=== PATIENT | female | born 1945 | race Caucasian/White ===

== ENCOUNTER 2019-03-05 11:11 | Inpatient (IN) ==
[2019-03-05] MEDS ORDERED: DEXAMETHASONE SOD PHOSPHATE 10 MG in SYRINGE 0 ML IV STA (12:43)
[2019-03-05] MEDS ORDERED: ACETAMINOPHEN 1,000 MG/100 ML VIAL IV STA (12:43)
[2019-03-05] MEDS ORDERED: DIAZEPAM 5 MG/ML INJ 10ML VIAL IV STA (12:43)
[2019-03-05] MEDS ORDERED: SODIUM CHLORIDE 0.9% 500 ML IV SCH (12:45)
--- NOTE | 2019-03-05 13:28 | XRay Report ---
XR chest 1V portable CLINICAL HISTORY: Chest Pain pain COMPARISON STUDY: No previous studies for comparison. FINDINGS: The bones soft tissues and hemidiaphragms are normal. The cardiomediastinal silhouette is n ormal. The lungs are clear. The pulmonary vasculature is normal. IMPRESSION: Negative chest. The above report was generated using voice recognition software. It may contain grammatical, syntax or spelling errors. Electronically signed by: Gustavo Walker M.D. 03/05/2019 1:26 PM
--- NOTE | 2019-03-05 13:29 | XRay Report ---
XR knee RT 2V routine CLINICAL HISTORY: pain, h/o arthritis pain COMPARISON: None. DISCUSSION: Severe degenerative change medial joint compartment. Moderate degenerative changes latera l and patellofemoral joint compartment. No significant joint effusion. There is no evidence for soft tissue swelling. IMPRESSION: Considerable degenerative change. The above report was generated using voice recognition software. It may contain grammatical, syntax or spelling errors. Electronically signed by: Gustavo Walker M.D. 03/05/2019 1:28 PM
--- NOTE | 2019-03-05 13:29 | XRay Report ---
XR shoulder RT min 2V routine CLINICAL HISTORY: pain, h/o arthritis pain COMPARISON: None. DISCUSSION: Moderate degenerative change right shoulder. No evidence for fracture or dislocation. Mod erate acromioclavicular degenerative change with inferior osteophyte projection from the acromion The re is no evidence for soft tissue swelling. IMPRESSION: Moderate generalized degenerative change. No acute process. The above report was generated using voice recognition software. It may contain grammatical, syntax or spelling errors. Electronically signed by: Gustavo Walker M.D. 03/05/2019 1:27 PM
[2019-03-05 13:37] LABS: Basophils # (auto) 0.02 K/uL (0-0.2); Basophils % (auto) 0.1 %; Eosinophils # (auto) 0.02 K/uL (0-0.5); Eosinophils % (auto) 0.1 %; Hematocrit (blood only) 30.6 % (37-47); Hemoglobin 10.1 g/dL (12.0-16.0); Immature Granulocytes # (auto) 0.12 K/uL (0.00-0.02); Immature Granulocytes % (auto) 0.9 %; Lymphocytes # (auto) 1.94 K/uL (1.2-3.4); Lymphocytes % (auto) 13.9 %; Mean Corpuscular Volume 92.7 fL (80-100); Mean Platelet Volume 9.4 fL (7.4-10.4); Monocytes # (auto) 1.02 K/uL (0.11-0.59); Monocytes % (auto) 7.3 %; Neutrophils # (auto) 10.88 K/uL (1.4-6.5); Neutrophils % (auto) 77.7 %; Platelet Count 287 K/uL (130-400); RDW Coefficient of Variation 13.9 % (11.5-14.5); RDW Standard Deviation 46.7 fL (36.4-46.3)
--- NOTE | 2019-03-05 13:37 | XRay Report ---
SINGLE VIEW PELVIS; 2 VIEWS RIGHT HIP CLINICAL HISTORY: Right hip and pelvic pain. FINDINGS: An AP, portable, supine view of the pelvis with AP and frog-leg portable supine views of th e right hip are obtained. No prior studies are available for comparison at the time of dictation. The examination is degraded by large body habitus. The skeletal structures are osteopenic. There is no r adiographic evidence of fracture involving the hips or bony pelvis. Mild degenerative joint space yelena rowing is seen in the hips. There is mild degenerative sclerosis of the sacroiliac joints. Lumbosacra l spondylosis is partially visualized. The overlying soft tissues are normal as imaged. IMPRESSION: No acute bony abnormality is identified. Electronically signed by: Boo Faria M.D. 03/05/2019 1:35 PM
[2019-03-05] MEDS ORDERED: DEXAMETHASONE **PF** INJ 10 MG/ML VIAL ONE (13:40)
[2019-03-05 13:55] LABS: Partial Thromboplastin Ratio 0.8; Partial Thromboplastin Time 22.3 Seconds (21.0-31.0); Prothrombin Time 10.7 Seconds (9.0-12.0)
[2019-03-05 13:59] LABS: Alanine Aminotransferase 18 U/L (12-78); Albumin Level 2.8 gm/dl (3.4-5.0); Aspartate Aminotransferase 18 U/L (15-37); BUN Creatinine Ratio 51.7 (10-20); Blood Urea Nitrogen 41 mg/dl (7-18); Carbon Dioxide 23 mmol/L (21-32); Chloride 107 mmol/L (98-107); Creatinine Clr Calc Pharmacy 94.8 ml/min; Est GFR (African American) 87.3; Est GFR (Non-African American) 75.3; Glucose 135 mg/dl (70-99); Magnesium 2.2 mg/dl (1.8-2.4); Potassium 4.3 mmol/L (3.5-5.1); Sodium 138 mmol/L (136-145)
[2019-03-05 14:04] LABS: Albumin Globulin Ratio 0.8 (0.9-2); Alkaline Phosphatase 71 U/L (45-117); Bilirubin,Total 0.3 mg/dl (0.2-1); Globulin 3.6 gm/dl (2.5-4.0); Total Protein 6.4 gm/dl (6.4-8.2); Troponin I < 0.015 ng/ml (0-0.045)
[2019-03-05] MEDS ORDERED: PANTOprazole 40 MG in SYRINGE 0 ML IV ONE (14:45)
[2019-03-05] MEDS ORDERED: MoRPHine SULFATE 10 MG/ML CARP/VIAL IV STA (15:03)
--- NOTE | 2019-03-05 15:53 | Gastrointestinal Consultation ---
Date of Consultation March 05, 2019 Assessment & Plan (1) Anemia: (2) Fecal occult blood test positive: Pt is a 73 y/o w significant degenerative changes on her shoulders, knees w c/o pain unrelieved w NSAIDs (Aleve, Ibuprofen). GI consulted as pt had notice black stools 2 days ago, but had been on Peptobismol for GI upset. She was anemic on presentation and had FOBT positive stool studies - Monitor H/H and transfuse prn - Protonix 40mg IV BID push - Ok for CL diet today, keep NPO after midnight - EGD tomorrow 03/06 - Avoid NSAIDs Supervising Physician Co-Signing Physician Notes I have performed a history and physical examination of this patient and reviewed the electronic medical record. Specifically, on physical examination patient is morbidly obese without abdominal tenderness. I have discussed the case with KARY Rosales. The above note reflects my findings, conclusions, and recommendations. Ulysses Brito MD History of Present Illness Reason for Consultation: Melena, FOBT + Requesting Physician: Dr. Markus Tsai Attending Physician: Dr. Ulysses Brito History of Present Illness Pt is a 73 y/o female who presented to ED w c/o pain on shoulders, knees. Been taking either Aleve or Ibuprofen on daily. A few days ago started have stomach upset, and indigestion symptoms. Took PeptoBismol for these symptoms and then 2 days ago noticed stools are black. She denies any n/v. Upon eval in ED, noted her H/H was low 10/30. Plt, INR normal. BUN up at 41. FOBT tested in ED positive. HR 90s-120s, BP 111/59. She has never had any endoscopic evaluations b efore. Denies any GI surgeries, hx of tubal ligation. Denies any other prescription meds at home. Denies any medical hx of cardiac disease, stroke, diabetes, HTN Allergies Allergy/AdvReac Type Severity Reaction Status Date / Time No Known Allergies Allergy Unverified 03/05/19 13:32 Home Medications Home Medications Medication Instructions Recorded Confirmed Type acetaminophen [Tylenol 8 Hour] 650 mg PO Q12H PRN 03/05/19 03/05/19 History ibuprofen 400 mg PO Q6H PRN 03/05/19 03/05/19 History magnesium salicylate-caffeine 2 tab PO Q6H PRN 03/05/19 03/05/19 History [Diurex] methyl salicylate-menthol [Bengay 1 applic TOPICAL BID PRN 03/05/19 03/05/19 H istory Greaseless] Patient History Medical History Arthritis Degenerative disc disease Family History Other Family history non-contributory Social History Preferred Language: Occitan Feels Safe at Home: Yes Smoking Status: Never smoker Review of Systems Review of Systems: All systems reviewed & are unremarkable except as noted in HPI & below Physical Exam Constitutional: + obese, well groomed and cooperative Eyes: PERRL, conjunctivae normal, anicteric sclerae ENMT: external ear and nose normal, oropharynx normal Respiratory: normal respiratory effort, lungs clear to auscultation Cardiovascular: RRR, no murmur, no edema Gastrointestinal (Abdomen): normal bowel sounds, soft, nontender, no hepatosplenomegaly Skin: no rashes, warm and dry no jaundice Neurologic: Motor/Sensory: no asterixis Psychiatric: A+Ox3, euthymic affect Lymphatic: no lymphedema Results & Data Vital Signs (Past 12 Hours) Vital Signs Temp Pulse Pulse Resp BP BP Pulse Ox 03/05/19 13:12 120 H 20 111/59 L 98 03/05/19 12:57 97 03/05/19 11:25 36.8 C 103 H 20 105/65 97 (1) Anemia Anemia type: unspecified type Qualified Code(s): D64.9 - Anemia, unspecified
[2019-03-05] MEDS ORDERED: IOVERSOL 100ml IV PRN (16:16)
--- NOTE | 2019-03-05 16:22 | CT Scan Report ---
CT abd pelvis IV con only CT DOSE: 1957.59 mGy.cm HISTORY: Melena dizziness, melena TECHNIQUE: Multiaxial CT images of the abdomen and pelvis were performed following the use of intrave nous contrast. A dose lowering technique was utilized adhering to the principles of ALARA. COMPARISON STUDY: None. FINDINGS: Lung bases are clear. Liver spleen and pancreas are unremarkable. Several small gallstones in the region of the gallbladder neck. No significant pericholecystic edema. Mild hyperplastic changes in the adrenal glands. Kidneys are considered negative for hydronephrosis. There is moderate cortical scarring of the kidneys bilaterally. Nonobstructive bowel pattern. IMPRESSION: 1. Several small gallstones. 2. Otherwise negative abdomen and pelvis. The above report was generated using voice recognition software. It may contain grammatical, syntax or spelling errors. Electronically signed by: Gustavo Walker M.D. 03/05/2019 4:21 PM
--- NOTE | 2019-03-05 17:32 | History & Physical Report ---
Date of Service March 05, 2019 Assessment & Plan (1) Upper GI bleed: This is a 73-year-old female who has a significant past medical history of morbid obesity and osteoarthritis who presents to [facility] secondary to generalized pain all over and dark stools x2 days. Likely secondary to significant NSAID use due to OADJD Pt has not been seen by PCP in 4-5 yrs Last hgb 2000 was 13.6 --> 10.1 today +FOBT admit to med/surg tele GI consulted --> EGD in a.m. Avoid NSAIDS Clear liq diet tonight; NPO after midnight PPI BID FOBT x 3 repeat h/h at 8pm and in a.m. transfuse prn hgb < 7 or symptomatic (2) Anemia: H/H 10.1 and 30.6 last hgb 13.6 in 2000 GI on board, like ABL in setting of GI loss follow H/H (3) THANH (acute kidney injury): Bun/Cr 41 and 0.79 Give 1 L IVF 80cc/hr repeat bmp in a.m. (4) Arthritis: Pt with R tricompartmental arthritis, R shoulder arthritis, R Lateral "hip," pain ? trochanteric bursitis Has never seen orthopedics - significant pain and lack of mobility due to pain an issue unable to take NSAIDS given recent significant use and now concern for UGIB will add ICE TID consult PT/OT when appropriate tramadol 50mg q4hr prn pain Schedule APAP consult orthopedics - ? if corticosteroid inj would be beneficial vs outpt follow up check ESR/CRP to r/o polymyalgia given significant arthralgias (5) Morbid obesity with BMI of 60.0-69.9, adult: encourage lifestyle modifications BMI 62 (6) DVT prophylaxis: SCDS/TEDS Disposition: discharge to home when able; pt may benefit from outpt PT/OT given arthritis along with outpt ortho follow up Follow up: Pt has not seen outpt provider since 2013, recommend setting up hospital follow up with Penny Sin PA-C or Dr. Santos Patient was seen and examined in collaboration with Dr. Tsai, please see addendum History of Present Illness Chief Complaint: Generalized pain all over; dark tarry stool x 2 days. Primary Care Provider: Clarence Mejia MD This is a 73-year-old female who has a significant past medical history of morbid obesity and osteoarthritis who presents to [facility] secondary to generalized pain all over and dark stools x2 days. Family is at bedside. Patient elicits she has a known history of severe arthritis in the right knee which causes her difficulty for ambulation. As of recently she has also had difficulty with right shoulder pain. "I cannot even raise my right arm to brush my hair because it hurts." Because of her osteoarthritis and arthralgias she has been taking significant amount of ibuprofen and aspirin. She has been taking 4 - 200mg ibuprofen every 4 hours along with occasional 4- baby ASA. She alternates with APAP. Over the past 2 days she has had 2 large bowel movements that were dark, black. She also has had nausea. Because of the nausea she took Pepto-Bismol, which she took prior to noticing dark stools. She elicited to some lightheadedness and dizziness with change in position and movement but denies any ifeoma syncope. Denies any fever, chills, sweats, chest pain, shortness of breath, palpitations, nausea, hemoptysis, hematemesis, emesis, abdominal pain, diarrhea, dysuria, hematuria, increased urgency or frequency with urination. "I am beside myself with all of my pain." She denies seeing orthopedics in the past for her arthritis. She also has not seen a general practitioner in approximately 4 years. Appetite has been good. Denies any weight change. Denies PMH of HTN, HLD, T2DM, CVA, [place], PUD, Cancer Denies hx of colonoscopy or EGD Allergies Allergy/AdvReac Type Severity Reaction Status Date / Time No Known Allergies Allergy Unverified 03/05/19 13:32 Home Medications Home Medications Medication Instructions Recorded Confirmed Type acetaminophen [Tylenol 8 Hour] 650 mg PO Q12H PRN 03/05/19 03/05/19 History ibuprofen 400 mg PO Q6H PRN 03/05/19 03/05/19 History magnesium salicylate-caffeine 2 tab PO Q6H PRN 03/05/19 03/05/19 History [Diurex] methyl salicylate-menthol [Bengay 1 applic TOPICAL BID PRN 03/05/19 03/05/19 History Greaseless] Past Med/Surg History Medical History Morbid obesity with BMI of 60.0-69.9, adult (Chronic) Arthritis (Chronic) Degenerative disc disease (Chronic) Surgical History History of tubal ligation (Chronic) Family History Mother Lung disease Coronary heart disease Father Cancer throat cancer Lung disease Other Diabetes Family history non-contributory Social History Preferred Language: Honduran Communication Ability: Effective Beliefs That Will Affect Care: None marital status: Current Living Situation: Spouse Other Information That Helps Us Care for You: No Feels Safe at Home: Yes Safety Concerns: Feels Safe At This Time Smoking Status: Never smoker Hx Alcohol Use: No Hx Substance Use: No Review of Systems Review of Systems: As noted per HPI, 10 systems reviewed and negative unless noted above. Physical Exam Physical Exam: Gen: WD/WN, morbidly obese, F, NAD, sitting up in bedside recliner, pleasant, conversing easily Head: Normocephalic, Atraumatic Eyes: Sclera normal, no conjunctival injection, PERRLA, EOMI ENT: Gross hearing intact, normal pharynx, mucous membranes moist Neck: supple, no adenopathy, No JVD, no bruit, Resp: Clear to auscultation b/l, no wheeze, rales, rhonchi. 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8 C 103 H 20 105/65 97 Laboratory Results Short CBC 03/05/19 Range/Units 13:25 WBC 14.00 H (4.8-10.8) K/uL Hgb 10.1 L (12.0-16.0) g/dL Hct 30.6 L (37-47) % Plt Count 287 (130-400) K/uL BMP 03/05/19 13:25 Sodium 138 Potassium 4.3 Chloride 107 Carbon Dioxide 23 BUN 41 H Creatinine 0.79 Glucose 135 H Calcium 9.0 Cardiac Enzymes 03/05/19 Range/Units 13:25 Troponin I < 0.015 (0-0.045) ng/ml Liver Function 03/05/19 Range/Units 13:25 Total Bilirubin 0.3 (0.2-1) mg/dl AST 18 (15-37) U/L ALT 18 (12-78) U/L Alkaline Phosphatase 71 (45-117) U/L Albumin 2.8 L (3.4-5.0) gm/dl Diagnostic Findings CT abd/Pelvis: FINDINGS: Lung bases are clear. Liver spleen and pancreas are unremarkable. Several small gallstones in the region of the gallbladder neck. No significant pericholecystic edema. Mild hyperplastic changes in the adrenal glands. Kidneys are considered negative for hydronephrosis. There is moderate cortical scarring of the kidneys bilaterally. Nonobstructive bowel pattern. IMPRESSION: 1. Several small gallstones. 2. Otherwise negative abdomen and pelvis. CXR: IMPRESSION: Negative chest. Shoulder Xray: IMPRESSION: Moderate generalized degenerative change. No acute process. Knee Xray: IMPRESSION: Considerable degenerative change. Hip Xray: IMPRESSION: No acute bony abnormality is identified. Medications Administered Ioversol (Optiray 320 100ml) 93 ml IV ONCE PRN PRN Reason: Interaction Checking Stop: 03/09/19 16:15 Last Admin: 03/05/19 16:16 Dose: 93 ml Documented by: [id number] Tramadol HCl (Ultram) 50 mg PO Q4H PRN PRN Reason: Pain Stop: 04/04/19 17:36 Last Admin: 03/05/19 18:13 Dose: 50 mg Documented by: [id number] Discontinued Medications Dexamethasone Sodium Phosphate (Decadron Pf) Confirm Administered Dose 10 mg .ROUTE .STK-MED ONE Stop: 03/05/19 13:41 Last Admin: 03/05/19 13:45 Dose: 10 mg Documented by: [id number] Diazepam (Valium) 5 mg IV NOW STA Stop: 03/05/19 12:44 Last Admin: 03/05/19 13:45 Dose: 5 mg Documented by: [id number] Dexamethasone Sodium Phosphate (10 mg/ Syringe) 2.5 mls @ 1 mls/min IV NOW STA Stop: 03/05/19 12:45 Last Admin: 03/05/19 13:45 Dose: Not Given Documented by: [id number] Sodium Chloride (Nss) 500 mls @ 999 mls/hr IV .Q31M GAURI Stop: 03/05/19 13:15 Last Infusion: 03/05/19 14:18 Dose: 0 mls/hr Documented by: [id number] Admin: 03/05/19 13:47 Dose: 999 mls/hr Documented by: [id number] Acetaminophen (Ofirmev) 1,000 mg in 100 mls @ 400 mls/hr IV NOW STA Stop: 03/05/19 12:57 Last Infusion: 03/05/19 13:59 Dose: 0 mls/hr Documented by: [id number] Admin: 03/05/19 13:44 Dose: 400 mls/hr Documented by: [id number] Pantoprazole Sodium 40 mg/ (Syringe) 10 mls @ 5 mls/min IV NOW ONE Stop: 03/05/19 14:46 Last Admin: 03/05/19 15:03 Dose: 5 mls/min Documented by: [id number] Morphine Sulfate (Morphine Sulfate) 8 mg IV NOW STA Stop: 03/05/19 15:04 Last Admin: 03/05/19 15:52 Dose: 8 mg Documented by: [id number] ECG Rate (beats per minute): 106 Rhythm: sinus tachycardia Findings: + prolonged QT (QTC 470ms) Additional Comments: possible lateral infarct age indeterminate Code Status & VTE Plan Code Status Full Code VTE Prophylaxis Plan VTE Prophylaxis will be ordered: No Reason for no VTE drug order: Contraindicated Supervising Physician Co-Signing Physician Notes Pt was seen and examined. Agreed with Vandana SAUL exam, assessment and plan. 73-year-old female with past medical history of morbid obesity and ost eoarthritis presents to [facility] for dark stools. Pt said that for the past few days she has been taking 4 asa and ibuprofen 800mg every 4 hrs for pain. She said that for the last 2 days she has been having dark stools. Hgb on admission 10.1. Received IV protonix in the ER. Continue protonix 40mg IV BID. Will monitor H/H.Gastro on board. Will keep NPO after midnight. Plan for EGD in am. Will start on tramadol for pain. Please refer to Vandana SAUL documentation for other problems. MD Eulalio (1) Anemia Anemia type: unspecified type Qualified Code(s): D64.9 - Anemia, unspecified
[2019-03-05] MEDS ORDERED: ACETAMINOPHEN 325 MG TAB PO PRN (17:37)
[2019-03-05] MEDS ORDERED: POLYETHYLENE (MIRALAX) 17 GM PACK PO PRN (17:37)
[2019-03-05] MEDS ORDERED: ONDANSETRON INJ 2 MG/ML 2 ML VIAL IV PRN (17:37)
[2019-03-05] MEDS: TRAMADOL HCL 50 MG TABLET PO PRN ×2 (18:13→22:02)
[2019-03-05] MEDS ORDERED: SODIUM CHLORIDE 0.9% 1000ML 1,000 ML IV SCH (19:00)
[2019-03-05] MEDS: ACETAMINOPHEN 325 MG TAB PO SCH (19:25)
--- NOTE | 2019-03-05 19:58 | Emergency Department Note ---
Entered by Nabeel Zepeda acting as a scribe for Mike Bella MD History of Present Illness General Chief complaint: Pain (Generalized) Stated complaint: SEVERE PAIN ON RIGHT SIDE& SHAKY Time Seen by Provider: 03/05/19 12:06 Source: patient History of Present Illness Onset (ago): week(s) 5 Location: right (shoulder, hip/leg) Pain Consistency: + constant Maximum Pain Intensity: 10 Relieved By: + medication (several over the counter medications) Associated symptoms: + other (black stool in past couple days, dizzy and nauseous today) The patient is a 73 year old female who presents to the Emergency Room with complaints of constant pain in the right shoulder and right hip/leg. The patient reports that 5 weeks ago she developed the right shoulder pain, causing her difficulty in raising her right arm. About a week ago she also developed worse maykel pain in her right hip/leg, which prompted her to schedule an appointment with her PCP for later today. She states that in the past couple of days her stools have been black, and today she developed dizziness and nausea. She called her PCP before her appointment and was told to come to the ER. The patient reports that over the past 5 weeks she has been taking several tuca-tdu-ozawldo medications for symptom management, including ibuprofen, Tylenol, aspirin, and Pepto-Bismol. She states that she has not taken any of these over the past 24 hours. The patient reports that she has a long history of arthritis primarily in the knees, worse in the right. She also states that several years ago she was diagnosed with degenerative disc disease. Daughters at bedside note that her feet have been somewhat swollen but state that she does not elevate her legs due to her knee arthritis. Home Medications Home Medications Medication Instructions Recorded Confirmed Type acetaminophen [Tylenol 8 Hour] 650 mg PO Q12H PRN 03/05/19 03/05/19 History ibuprofen 400 mg PO Q6H PRN 03/05/19 03/05/19 History magnesium salicylate-caffeine 2 tab PO Q6H PRN 03/05/19 03/05/19 History [Diurex] methyl salicylate-menthol [Bengay 1 applic TOPICAL BID PRN 03/05/19 03/05/19 History Greaseless] Allergies Allergy/AdvReac Type Severity Reaction Status Date / Time No Known Allergies Allergy Unverified 03/05/19 13:32 Past Med/Surg History Medical History Morbid obesity with BMI of 60.0-69.9, adult (Chronic) Arthritis (Chronic) Degenerative disc disease (Chronic) Surgical History History of tubal ligation (Chronic) Family History Mother Lung disease Coronary heart disease Father Cancer throat cancer Lung disease Other Diabetes Family history non-contributory Social History Preferred Language: Icelandic Communication Ability: Effective Beliefs That Will Affect Care: None marital status: Current Living Situation: Spouse Other Information That Helps Us Care for You: No Feels Safe at Home: Yes Safety Concerns: Feels Safe At This Time Smoking Status: Never smoker Hx Alcohol Use: No Hx Substance Use: No Review of Systems See HPI for pertinent positives & negatives. and A total of 10 systems reviewed and were otherwise negative Physical Exam Vital Signs Vital Signs - 24 hr 03/05/19 11:25 03/05/19 12:57 03/05/19 13:12 Temperature 36.8 C Temperature Source Oral Sepsis Recent Fever Within 48 Hours No Sepsis New/Unexplained Change in Mental Status No Sepsis Action Taken by Nursing No Action Required Pulse Rate 103 H Pulse Rate [Apical] 120 H Pulse Rate from SpO2 Sensor Pulse Rhythm [Apical] Regular Pulse Strength [Apical] Normal Respiratory Rate 20 20 Respiratory Effort / Characteristics Non-Labored Non-Labored Spontaneous Respiratory Depth Normal Normal Respiratory Pattern Regular Blood Pressure 105/65 Blood Pressure [Left Arm] 111/59 L Blood Pressure Mean 78 Blood Pressure Mean [Left Arm] 76 Blood Pressure Position Sitting Blood Pressure Position [Left Arm] Sitting Pulse Oximetry 97 97 98 Oxygen Delivery Method Room Air Room Air Room Air 03/05/19 13:55 03/05/19 13:59 03/05/19 14:00 Temperature Temperature Source Sepsis Recent Fever Within 48 Hours Sepsis New/Unexplained Change in Mental Status Sepsis Action Taken by Nursing Pulse Rate 97 H 98 H 98 H Pulse Rate [Apical] Pulse Rate from SpO2 Sensor 97 H 98 H 99 H Pulse Rhythm [Apical] Pulse Strength [Apical] Respiratory Rate 17 16 17 Respiratory Effort / Characteristics Respiratory Depth Respiratory Pattern Blood Pressure 111/59 L Blood Pressure [Left Arm] Blood Pressure Mean 76 Blood Pressure Mean [Left Arm] Blood Pressure Position Blood Pressure Position [Left Arm] Pulse Oximetry 95 95 96 Oxygen Delivery Method 03/05/19 14:01 03/05/19 15:00 Temperature Temperature Source Sepsis Recent Fever Within 48 Hours Sepsis New/Unexplained Change in Mental Status Sepsis Action Taken by Nursing Pulse Rate 99 H 92 H Pulse Rate [Apical] Pulse Rate from SpO2 Sensor 99 H 92 H Pulse Rhythm [Apical] Pulse Strength [Apical] Respiratory Rate 21 19 Respiratory Effort / Characteristics Respiratory Depth Respiratory Pattern Blood Pressure 96/58 L 102/60 Blood Pressure [Left Arm] Blood Pressure Mean 70 74 Blood Pressure Mean [Left Arm] Blood Pressure Position Blood Pressure Position [Left Arm] Pulse Oximetry 95 95 Oxygen Delivery Method GENERAL: Awake, alert, uncomfortab le-appearing, in no distress. BMI is 62.4. HENT: Normocephalic, atraumatic. Oropharynx unremarkable. EYES: Normal conjunctiva. Sclera non-icteric. NECK: Supple. No nuchal rigidity. FROM. No JVD. RESPIRATORY: Clear to auscultation bilaterally. CARDIAC: Regular rate, normal rhythm. Extremities warm and well perfused. Pulses equal. ABDOMEN: Soft, non-distended. No tenderness to palpation. No rebound or gu arding. No masses. RECTAL: Positive melena, no gross blood, Guaiac positive. MUSCULOSKELETAL: Tenderness to right shoulder AC joint with pain with active ROM of the right shoulder that is cecreased pain with passive ROM. Chest examination reveals no tenderness. The back is symmetrical on inspection without obvious abnormality. There is no CVA tenderness to palpation. No joint edema. LOWER EXTREMITIES: Pain with active ROM of the right knee. Calves are equal size bilaterally and non-tender. 1+ BLE edema. No discoloration. NEURO: Normal sensorium. No sensory or motor deficits noted. SKIN: No rash or jaundice noted. Course 1230: The patient was evaluated in room B7. A complete history and physical examination were performed. 1437: I consulted Vandana Zamora PA-C: [facility] Hospitalist. The patient will be reevaluated for hospitalization. Administered Medications Acetaminophen (Tylenol) 650 mg PO Q6 GAURI Stop: 04/04/19 19:59 Last Admin: 03/05/19 19:25 Dose: 650 mg Documented by: [id number] Pantoprazole Sodium 40 mg/ (Syringe) 10 mls @ 5 mls/min IV BID@0900,2100 [facility] Stop: 04/04/19 20:59 Last Admin: 03/05/19 21:32 Dose: 5 mls/min Documented by: [id number] Sodium Chloride (Nss 1000ml) 1,000 mls @ 80 mls/hr IV .[id number] GAURI Stop: 03/06/19 07:29 Last Admin: 03/05/19 19:22 Dose: 80 mls/hr Documented by: [id number] Ioversol (Optiray 320 100ml) 93 ml IV ONCE PRN PRN Reason: Interaction Checking Stop: 03/09/19 16:15 Last Admin: 03/05/19 16:16 Dose: 93 ml Documented by: [id number] Tramadol HCl (Ultram) 50 mg PO Q4H PRN PRN Reason: Pain Stop: 04/04/19 17:36 Last Admin: 03/05/19 22:02 Dose: 50 mg Documented by: [id number] Admin: 03/05/19 18:13 Dose: 50 mg Documented by: [id number] Discontinued Medications Dexamethasone Sodium Phosphate (Decadron Pf) Confirm Administered Dose 10 mg .ROUTE .STK-MED ONE Stop: 03/05/19 13:41 Last Admin: 03/05/19 13:45 Dose: 10 mg Documented by: [id number] Diazepam (Valium) 5 mg IV NOW STA Stop: 03/05/19 12:44 Last Admin: 03/05/19 13:45 Dose: 5 mg Documented by: [id number] Dexamethasone Sodium Phosphate (10 mg/ Syringe) 2.5 mls @ 1 mls/min IV NOW STA Stop: 03/05/19 12:45 Last Admin: 03/05/19 13:45 Dose: Not Given Documented by: [id number] Sodium Chloride (Nss) 500 mls @ 999 mls/hr IV .Q31M GAURI Stop: 03/05/19 13:15 Last Infusion: 03/05/19 14:18 Dose: 0 mls/hr Documented by: [id number] Admin: 03/05/19 13:47 Dose: 999 mls/hr Documented by: [id number] Acetaminophen (Ofirmev) 1,000 mg in 100 mls @ 400 mls/hr IV NOW STA Stop: 03/05/19 12:57 Last Infusion: 03/05/19 13:59 Dose: 0 mls/hr Documented by: [id number] Admin: 03/05/19 13:44 Dose: 400 mls/hr Documented by: [id number] Pantoprazole Sodium 40 mg/ (Syringe) 10 mls @ 5 mls/min IV NOW ONE Stop: 03/05/19 14:46 Last Admin: 03/05/19 15:03 Dose: 5 mls/min Documented by: [id number] Morphine Sulfate (Morphine Sulfate) 8 mg IV NOW STA Stop: 03/05/19 15:04 Last Admin: 03/05/19 15:52 Dose: 8 mg Documented by: [id number] Medical Decision Making Differential Diagnosis Differential diagnosis includes: diverticulosis, AVM, coagulopathy, colitis, inflammatory bowel disease, malignancy, Jazmine-Mackenzie tear, esophagitis, peptic ulcer disease, variceal bleed, gastritis, epistaxis, fissure, hemorrhoids, aswell as others were entertained. Medical Records Attestation: I reviewed the patient's medical records. Home Medications Current Medication List: was personally reviewed by me Laboratory Data Attestation: I reviewed the patient's lab results. Result diagrams: 03/05/19 19:45 03/05/19 13:25 Lab Results 03/05/19 03/05/19 03/05/19 Range/Units 13:25 13:25 13:25 WBC 14.00 H (4.8-10.8) K/uL RBC 3.30 L (4.2-5.4) M/uL Hgb 10.1 L (12.0-16.0) g/dL Hct 30.6 L (37-47) % MCV 92.7 (80-100) fL MCH 30.6 (25-34) pg MCHC 33.0 (32-36) g/dL RDW Std Deviation 46.7 H (36.4-46.3) fL RDW Coeff of Octavio 13.9 (11.5-14.5) % Plt Count 287 (130-400) K/uL MPV 9.4 (7.4-10.4) fL Immature Gran % (Auto) 0.9 % Neut % (Auto) 77.7 % Lymph % (Auto) 13.9 % Fisher % (Auto) 7.3 % Eos % (Auto) 0.1 % Baso % (Auto) 0.1 % Immature Gran # (Auto) 0.12 H (0.00-0.02) K/uL Neut # (Auto) 10.88 H (1.4-6.5) K/uL Lymph # (Auto) 1.94 (1.2-3.4) K/uL Fisher # (Auto) 1.02 H (0.11-0.59) K/uL Eos # (Auto) 0.02 (0-0.5) K/uL Baso # (Auto) 0.02 (0-0.2) K/uL PT 10.7 (9.0-12.0) Seconds INR 1.0 (0.9-1.1) APTT 22.3 (21.0-31.0) Seconds PTT Ratio 0.8 Sodium 138 (136-145) mmol/L Potassium 4.3 (3.5-5.1) mmol/L Chloride 107 (98-107) mmol/L Carbon Dioxide 23 (21-32) mmol/L Anion Gap 8.0 (3-11) BUN 41 H (7-18) mg/dl Creatinine 0.79 (0.6-1.2) mg/dl Est Cr Clr Drug Dosing 94.8 ml/min Est GFR ( Amer) 87.3 Est GFR (Non-Af Amer) 75.3 BUN/Creatinine Ratio 51.7 H (10-20) Glucose 135 H (70-99) mg/dl Calcium 9.0 (8.5-10.1) mg/dl Magnesium 2.2 (1.8-2.4) mg/dl Total Bilirubin 0.3 (0.2-1) mg/dl AST 18 (15-37) U/L ALT 18 (12-78) U/L Alkaline Phosphatase 71 (45-117) U/L Troponin I < 0.015 (0-0.045) ng/ml Total Protein 6.4 (6.4-8.2) gm/dl Albumin 2.8 L (3.4-5.0) gm/dl Globulin 3.6 (2.5-4.0) gm/dl Albumin/Globulin Ratio 0.8 L (0.9-2) Lipase 118 (73-393) U/L Blood Type Antibody Screen 03/05/19 Range/Units 14:48 WBC (4.8-10.8) K/uL RBC (4.2-5.4) M/uL Hgb (12.0-16.0) g/dL Hct (37-47) % MCV (80-100) fL MCH (25-34) pg MCHC (32-36) g/dL RDW Std Deviation (36.4-46.3) fL RDW Coeff of Octavio (11.5-14.5) % Plt Count (130-400) K/uL MPV (7.4-10.4) fL Immature Gran % (Auto) % Neut % (Auto) % Lymph % (Auto) % Fisher % (Auto) % Eos % (Auto) % Baso % (Auto) % Immature Gran # (Auto) (0.00-0.02) K/uL Neut # (Auto) (1.4-6.5) K/uL Lymph # (Auto) (1.2-3.4) K/uL Fisher # (Auto) (0.11-0.59) K/uL Eos # (Auto) (0-0.5) K/uL Baso # (Auto) (0-0.2) K/uL PT (9.0-12.0) Seconds INR (0.9-1.1) APTT (21.0-31.0) Seconds PTT Ratio Sodium (136-145) mmol/L Potassium (3.5-5.1) mmol/L Chloride (98-107) mmol/L Carbon Dioxide (21-32) mmol/L Anion Gap (3-11) BUN (7-18) mg/dl Creatinine (0.6-1.2) mg/dl Est Cr Clr Drug Dosing ml/min Est GFR ( Amer) Est GFR (Non-Af Amer) BUN/Creatinine Ratio (10-20) Glucose (70-99) mg/dl Calcium (8.5-10.1) mg/dl Magnesium (1.8-2.4) mg/dl Total Bilirubin (0.2-1) mg/dl AST (15-37) U/L ALT (12-78) U/L Alkaline Phosphatase (45-117) U/L Troponin I (0-0.045) ng/ml Total Protein (6.4-8.2) gm/dl Albumin (3.4-5.0) gm/dl Globulin (2.5-4.0) gm/dl Albumin/Globulin Ratio (0.9-2) Lipase (73-393) U/L Blood Type O Positive Antibody Screen NEGATIVE Imaging Data Radiologist's Impression: Radiology results as stated below per my review and the radiologist's interpretation: XR chest 1V portable CLINICAL HISTORY: Chest Pain pain COMPARISON STUDY: No previous studies for comparison. FINDINGS: The bones soft tissues and hemidiaphragms are normal. The cardiomedia stinal silhouette is normal. The lungs are clear. The pulmonary vasculature is normal. IMPRESSION: Negative chest. The above report was generated using voice recognition software. It may contain grammatical, syntax or spelling errors. Electronically signed by: Gustavo Walker M.D. 03/05/2019 1:26 PM SINGLE VIEW PELVIS; 2 VIEWS RIGHT HIP CLINICAL HISTORY: Right hip and pelvic pain. FINDINGS: An AP, portable, supine view of the pelvis with AP and frog-leg portable supine views of the right hip are obtained. No prior studies are available for comparison at the time of dictation. The examination is degraded by large body habitus. The skeletal structures are osteopenic. There is no radiographic evidence of fracture involving the hips or bony pelvis. Mild degenerative joint space narrowing is seen in the hips. There is mild degenerative sclerosis of the sacroiliac joints. Lumbosacral spondylosis is partially visualized. The overlying soft tissues are normal as imaged. IMPRESSION: No acute bony abnormality is identified. Electronically signed by: Boo Faria M.D. 03/05/2019 1:35 PM XR knee RT 2V routine CLINICAL HISTORY: pain, h/o arthritis pain COMPARISON: None. DISCUSSION: Severe degenerative change medial joint compartment. Moderate degenerative changes lateral and patellofemoral joint compartment. No significant joint effusion. There is no evidence for soft tissue swelling. IMPRESSION: Considerable degenerative change. The above report was generated using voice recognition software. It may contain grammatical, syntax or spelling errors. Electronically signed by: Gustavo Walker M.D. 03/05/2019 1:28 PM XR shoulder RT min 2V routine CLINICAL HISTORY: pain, h/o arthritis pain COMPARISON: None. DISCUSSION: Moderate degenerative change right shoulder. No evidence for fracture or dislocation. Moderate acromioclavicular degenerative change with inferior osteophyte projection from the acromion There is no evidence for soft tissue swelling. IMPRESSION: Moderate generalized degenerative change. No acute process. The above report was generated using voice recognition software. It may contain grammatical, syntax or spelling errors. Electronically signed by: Gustavo Walker M.D. 03/05/2019 1:27 PM ECG Data Attestation: I personally reviewed and interpreted this ECG as follows: Indication: other (GI bleed) Rate (beats per minute): 106 Rhythm: sinus tachycardia Findings: + other (LVH); no ST depression (overt) and no ST elevation (overt) Blood Pressure Blood Pressure Findings: Normal blood pressure Blood Pressure Disposition: did not require urgent referral MDM Narrative The patient is a pleasant 73-year-old woman with a past medical history of morbid obesity who presents emergency department with worsening right shoulder, right hip and right knee pain over the past month which she has been self treating with recurrent doses of ibuprofen and aspirin as well as Tylenol with no relief but subsequent development of black stools over the past several days with associated lightheadedness and generalized weakness per hpi. On arrival the patient is uncomfortable but no acute distress, afebrile with stable vital signs. The patient has pain with range of motion of her right shoulder hip and knee. Right shoulder with tenderness of the AC joint with decreased pain with passive range of motion compared to active range of motion. Rectal exam demonstrates melena without gross blood but is guaiac positive. Abdomen is benign. EKG without overt acute ischemia. Chest x-ray negative for free air or pneumonia. Plain films of the shoulder, hip/pelvis and knee negative for acute process but does demonstrate osteoarthritis. WBC 14, nonspecific. Platelets w ithin normal limits. H/H 10/30 without prior values for comparison as patient has not had lab work done in the past 3 years. Chemistry without acidosis and creatinine within normal limits. However, BUN is elevated at 41 raising the suspicion for upper GI bleed given the patient's anemia and melena. Patient was ordered for IV Protonix. Given the patient is hemodynamically stable patient was ordered for a type and screen however transfusion deferred at this time. CT abdomen pelvis shows gallstones but otherwise no acute process. Case was discussed with Taz Valdes PA-C, who will evaluate the patient for admission. Impression & Plan Upper GI bleed, Anemia, Elevated BUN Discharge Plan Visit Data *Final* Discharge Date/Time: 03/05/19 16:10 Chief Complaint: Pain (Generalized) Stated Complaint: SEVERE PAIN ON RIGHT SIDE& SHAKY ED Provider: Mike Bella Discharge Problem: Upper GI bleed, Anemia, Elevated BUN Patient Disposition: Admitted As Inpatient Discharge Instructions Interventions: ED Discharge Assessment Last Done: 03/05/19 16:10 Discharge Problem: Anemia Qualifiers: Anemia type: unspecified type Qualified Code(s): D64.9 - Anemia, unspecified The scribe's documentation has been prepared under my direction and personally reviewed by me in its entirety. I confirm that the note above accurately reflects all work, treatment, procedures, and medical decision making performed by me.
[2019-03-05 19:59] LABS: Hematocrit (blood only) 29.8 % (37-47); Hemoglobin 9.7 g/dL (12.0-16.0)
[2019-03-05] MEDS: PANTOprazole 40 MG in SYRINGE 0 ML IV SCH (21:32)
[2019-03-05] MEDS ORDERED: MICONAZOLE NITRATE POWDER 43 GM EXT PRN (23:29)
[2019-03-06 03:23] LABS: Appearance Urine Clear (Clear); Bilirubin Urine Negative (Negative); Blood Urine Negative (Negative); Color Urine Yellow; Glucose Urine UA Negative (Negative); Ketones Urine Negative (Negative); Leukocyte Esterase Urine Negative (Negative); Nitrite Urine Negative (Negative); Protein Urine Negative (Negative); Specific Gravity Urine 1.026 (1.000-1.030); Urobilinogen Urine Negative (Negative)
[2019-03-06] MEDS: TRAMADOL HCL 50 MG TABLET PO PRN ×3 (04:57→21:45)
[2019-03-06] MEDS: ACETAMINOPHEN 325 MG TAB PO SCH (06:17)
[2019-03-06 06:29] LABS: Basophils # (auto) 0.01 K/uL (0-0.2); Basophils % (auto) 0.1 %; Hematocrit (blood only) 27.2 % (37-47); Hemoglobin 8.8 g/dL (12.0-16.0); Immature Granulocytes % (auto) 0.7 %; Lymphocytes # (auto) 1.41 K/uL (1.2-3.4); Lymphocytes % (auto) 9.2 %; Mean Corpuscular Hgb Conc 32.4 g/dL (32-36); Mean Corpuscular Volume 95.1 fL (80-100); Mean Platelet Volume 9.1 fL (7.4-10.4); Monocytes # (auto) 1.05 K/uL (0.11-0.59); Monocytes % (auto) 6.8 %; Neutrophils # (auto) 12.79 K/uL (1.4-6.5); Neutrophils % (auto) 83.2 %; Nucleated RBC # (auto) 0.07 K/uL (0-0); Nucleated RBC % (auto) 0.4 %; Platelet Count 272 K/uL (130-400); RDW Coefficient of Variation 14.2 % (11.5-14.5); RDW Standard Deviation 48.5 fL (36.4-46.3); Red Blood Count 2.86 M/uL (4.2-5.4); White Blood Count 15.36 K/uL (4.8-10.8)
[2019-03-06 07:01] LABS: BUN Creatinine Ratio 40.1 (10-20); Calcium 8.6 mg/dl (8.5-10.1); Creatinine Clr Calc Pharmacy 108.5 ml/min; Est GFR (African American) 101.5; Est GFR (Non-African American) 87.6; Potassium 4.2 mmol/L (3.5-5.1)
[2019-03-06 07:10] LABS: C Reactive Protein 0.55 mg/dl (0-0.29)
[2019-03-06] MEDS: PANTOprazole 40 MG in SYRINGE 0 ML IV SCH ×2 (08:47→20:37)
--- NOTE | 2019-03-06 09:43 | Hospitalist Progress Note ---
Date of Service March 06, 2019 Assessment & Plan (1) Upper GI bleed: This is a 73-year-old female who has a significant past medical history of morbid obesity and osteoarthritis who presents to [facility] secondary to generalized pain all over and dark stools x2 days. Likely secondary to significant NSAID use due to OADJD Pt has not been seen by PCP in 4-5 yrs Last hgb 2000 was 13.6 --> 10.1 yesterday, 8.8 today +FOBT GI consulted --> EGD today. Avoid NSAIDS PPI BID transfuse prn hgb < 7 or symptomatic (2) Anemia: UGIB, Acute GI Blood Loss Anemia (3) THANH (acute kidney injury): Resolved (4) Arthritis: Pt with R tricompartmental arthritis, R shoulder arthritis, R Lateral "hip," pain ? trochanteric bursitis Has never seen orthopedics - significant pain and lack of mobility due to pain an issue unable to take NSAIDS given recent significant use and now concern for UGIB will add ICE TID PT/OT soon tramadol 50mg q4hr prn pain Schedule Tylenol consult orthopedics - ? if corticosteroid inj would be beneficial vs outpt follow up check ESR/CRP to r/o polymyalgia given significant arthralgias (5) Morbid obesity with BMI of 60.0-69.9, adult: encourage lifestyle modifications BMI 62 (6) DVT prophylaxis: SCDS/TEDS Disposition: discharge to home when able; pt may benefit from outpt PT/OT given arthritis along with outpt ortho follow up Follow up: Pt has not seen outpt provider since 2013, recommend setting up hospital follow up with Penny Sin PA-C or Dr. Tom VICTORIA when Hb rising and edvin diet, monitor daily labs ROS-No Headache, No Visual Changes, No Nausea, No Vomiting, No Fever, No Chills, No Neck Pain or Stiffness, No Chest Pain, No Palpitations, No SOB, No BARRETT, No Cough, No Sputum, No Wheezing, No Abdominal Pain, No Diarrhea, No Hematemesis, No Hemoptysis, No Unexpected Weight Loss, No Flank pain, No Melena, No Hematochezia, No Frequency, No Urgency, No Burning, No Hematuria, No Rashes, No Diaphoresis. Appetite is Normal, Black stools Physical Exam Gen-AAO x 3, NAD, Afebrile, Obese Head-NCAT, EOMI, PERRLA, Anicteric Sclera, No Posterior Pharyngeal Erythema Neck-Supple, No JVD, No Thyromegaly, No Masses, No LAD, No Bruits Lungs-Clear to Auscultation Bilaterally, No Rales, No Rhonchi, No Wheezing, No Crepitus Chest-No S4, +S1, +S2, No S3, No Murmurs, No Rubs, No Gallops, No Ectopy Abdomen-Soft, Bowel Sounds Present, Non Tender, Non Distended, No Hepatomegaly, No Splenomegaly, No Palpable Masses, No Rebound, No Rigidity, No Guarding Musculoskeletal-Full Range of Motion Bilaterally, No CVAT Extremities-No Cyanosis, No Clubbing, No Edema Nuero-Cranial Nerves II-XII grossly intact, Motor WNL, DTRs WNL, Strength WNL, Non Focal Psych-Normal Mood Results & Data Vital Signs (Past 12 Hours) Vital Signs Temp Pulse Pulse Pulse Resp BP Pulse Ox 03/06/19 08:00 91 H 03/06/19 07:01 36.4 C L 87 16 150/74 H 96 03/06/19 03:21 90 03/05/19 23:36 36.8 C 93 H 20 154/79 H 96 (1) Anemia Anemia type: unspecified type Qualified Code(s): D64.9 - Anemia, unspecified
--- NOTE | 2019-03-06 09:49 | History & Physical Bridge Note ---
Date of Service March 06, 2019 History & Physical Bridge Note I have examined the patient, reviewed the History & Physical and in the interval since the performance of the History & Physical I have noted the following changes of clinical significance: no changes noted Pt still c/o generalized joint discomfort. Denies any abd pain, n/v. Hungry, no more BMs. Noted Hgb dropped to 8.8 from 10. She's NPO for scheduled EGD today. Exam: - AAOx3, in NAD - HRR no murmur or gallops - CTA bilateral lungs - Abd soft, non tender, hypoactive - No edema on bilateral LE GI will give further recs after EGD is completed. Please continue NPO status and PPI IV BID for now.
--- NOTE | 2019-03-06 10:30 | Anesthesiology Consultation ---
Date of Service March 06, 2019 Assessment & Plan (1) Encounter for pre-operative examination: Chart Review Chart Review: Acceptable Risk for Surgery and Patient NOT seen in Pre Admission Testing Consults Requested none History Surgery Operation Date: 03/06/19 08:45 Proposed Procedures p Esophagogastroduodenoscopy Dr Louie - Ulysses Brito MD Height/Weight Height: 5 ft 2 in Weight: 154.675 kg Allergies Allergy/AdvReac Type Severity Reaction Status Date / Time No Known Allergies Allergy Unverified 03/05/19 13:32 Medications Home Medications Medication Instructions Recorded Confirmed Last Taken acetaminophen [Tylenol 8 Hour] 650 mg PO Q12H PRN 03/05/19 03/05/19 03/04/19 ibuprofen 400 mg PO Q6H PRN 03/05/19 03/05/19 03/04/19 magnesium salicylate-caffeine 2 tab PO Q6H PRN 03/05/19 03/05/19 Unknown [Diurex] methyl salicylate-menthol [Bengay 1 applic TOPICAL BID PRN 03/05/19 03/05/19 Unknown Greaseless] Active Medications Generic Name Dose Route Start Last Admin Trade Name Freq PRN Reason Stop Dose Admin Pantoprazole Sodium 40 mg/ 10 mls @ 5 mls/min 03/05/19 21:00 03/06/19 08:47 Syringe IV 04/04/19 20:59 5 mls/min BID@0900,2100 GAURI Administration Ioversol 93 ml 03/05/19 16:16 03/05/19 16:16 Optiray 320 100ml IV 03/09/19 16:15 93 ml ONCE PRN Administration Interaction Checking Tramadol HCl 50 mg 03/05/19 17:37 03/06/19 08:55 Ultram PO 04/04/19 17:36 50 mg Q4H PRN Administration Pain NPO Date Last Intake of Fluids: 03/05/19 Date Last Intake of Solids: 03/05/19 Past Medical History Medical History Morbid obesity with BMI of 60.0-69.9, adult (Chronic) Arthritis (Chronic) Degenerative disc disease (Chronic) Past Family History Family History Mother Lung disease Coronary heart disease Father Cancer throat cancer Lung disease Other Diabetes Family history non-contributory Past Surgical History Surgical History History of tubal ligation (Chronic) Social History Smoking Status: Never smoker Hx Alcohol Use: No alcohol intake frequency: holidays/special occasions only Hx Substance Use: No Physical Exam Vital Signs Last Vital Signs Temp 36.4 C L 03/06/19 07:01 Pulse 91 H 03/06/19 08:00 Resp 16 03/06/19 07:01 BP 150/74 H 03/06/19 07:01 Pulse Ox 96 03/06/19 07:01 Testing Laboratory Results 03/06/19 06:14 03/06/19 06:14 PT 10.7 Seconds (9.0-12.0) 03/05/19 13:25 INR 1.0 (0.9-1.1) 03/05/19 13:25 APTT 22.3 Seconds (21.0-31.0) 03/05/19 13:25 Urine Color Yellow 03/06/19 02:15 Urine Appearance Clear (Clear) 03/06/19 02:15 Urine pH 5.0 (4.5-7.5) 03/06/19 02:15 Ur Specific [place] 1.026 (1.000-1.030) 03/06/19 02:15 Urine Protein Negative (Negative) 03/06/19 02:15 Urine Glucose (UA) Negative (Negative) 03/06/19 02:15 Urine Ketones Negative (Negative) 03/06/19 02:15 Urine Nitrite Negative (Negative) 03/06/19 02:15 Ur Leukocyte Esterase Negative (Negative) 03/06/19 02:15 Blood Type O Positive 03/05/19 14:48 Antibody Screen NEGATIVE 03/05/19 14:48
[2019-03-06] MEDS ORDERED: ATROPINE SULFATE 0.1 MG/ML 10ML SYR IV PRN (10:46)
[2019-03-06] MEDS ORDERED: ePHEDrine sulfate 50 MG/ML AMP IV PRN (10:46)
[2019-03-06] MEDS ORDERED: fentaNYL citrate 100 MCG/2 ML VIAL ONE (10:54)
--- NOTE | 2019-03-06 11:23 | GI REPORT ---
Patient Name: Connie Arango Procedure Date: 03/06/2019 10:34 AM Date of : 1945 Admit Type: Inpatient Age: 73 Gender: Female Attending MD: Ulysses Brito MD Procedure: Upper GI endoscopy Providers: Ulysses Brito MD Referring MD: Thang Burgess Do Indications: Melena Medicines: Monitored Anesthesia Care Complications: No immediate complications. Estimated blood loss: None. Estimated Blood Loss: Estimated blood loss: none. Procedure: Pre-Anesthesia Assessment: - Prior to the procedure, a History and Physical was performed, and patient medications, allergies and sensitivities were reviewed. The patient's tolerance of previous anesthesia was reviewed. - ASA Grade Assessment: III - A patient with severe systemic disease. After obtaining informed consent, the endoscope was passed under direct vision. Throughout the procedure, the patient's blood pressure, pulse, and oxygen saturations were monitored continuously. The scope was introduced through the mouth, and advanced to the third part of duodenum. The upper GI endoscopy was accomplished with ease. The patient tolerated the procedure well. Findings: The upper third of the esophagus, middle third of the esophagus and lower third of the esophagus were normal. The Z-line was regular and was found 38 cm from the incisors. Clotted blood was found in the stomach. One oozing cratered gastric ulcer with adherent clot was found in the gastric antrum. The lesion was 6 mm in largest dimension. Area was successfully injected with 4 mL of a 1:10,000 solution of epinephrine for hemostasis. Coagulation for hemostasis using bipolar probe was successful. Biopsies were taken with a cold forceps in the entire examined stomach for Helicobacter pylori testing. The examined duodenum was normal. Verification of patient identification for the specimen was done by the physician and nurse using the patient's name, date and medical record number. Impression: - Normal upper third of esophagus, middle third of esophagus and lower third of esophagus. - Z-line regular, 38 cm from the incisors. - Clotted blood in the stomach. - Oozing gastric ulcer with adherent clot. Injected. Treated with bipolar cautery. - Normal examined duodenum. - Biopsies were taken with a cold forceps for Helicobacter pylori testing. Recommendation: - Return patient to hospital [facility] for ongoing care. Ulysses L. Daryl, MLaura Brito MD 03/06/2019 11:22:26 AM This report has been signed electronically. Note Initiated On: 03/06/2019 10:34 AM Number of Addenda: 0 I attest to the content of the Intraoperative Record and orders documented therein, exceptions below {[id number]}
[2019-03-06] MEDS ORDERED: PROPOFOL IV EMULSION 10 MG/ML 20 ML VIAL IV ONE (11:24)
[2019-03-06] MEDS ORDERED: LIDOCAINE HCL 2% 2 ML VIAL/AMP(20MG/ML) INFIL ONE (11:24)
[2019-03-06] MEDS: ACETAMINOPHEN 500 MG TAB PO SCH ×3 (14:06→20:20)
--- NOTE | 2019-03-06 15:44 | Anesthesiology Progress Note ---
Date of Service March 06, 2019 Anesthesia Post Procedure Vital Signs Vital Signs: Temp Pulse Pulse Pulse Resp BP Pulse Ox 03/06/19 15:41 86 03/06/19 15:40 36.6 C 88 20 149/76 H 95 03/06/19 12:24 91 H 18 143/84 H 96 03/06/19 11:53 87 20 153/84 H 96 03/06/19 11:37 93 H 20 150/69 H 97 03/06/19 11:21 85 20 147/82 H 97 03/06/19 10:32 36.7 C 99 H 20 136/104 H 96 03/06/19 08:00 91 H 03/06/19 07:01 36.4 C L 87 16 150/74 H 96 03/06/19 03:21 90 03/05/19 23:36 36.8 C 93 H 20 154/79 H 96 03/05/19 19:41 36.6 C 92 H 20 152/81 H 94 03/05/19 17:42 87 03/05/19 17:37 35.4 C L 95 H 22 141/80 H 93 03/05/19 16:45 35.4 C L 95 H 22 141/80 H 93 Pain Intensity Generalized: Pain Intensity: 5 Transfer of Care Handoff Completed per policy Notes Mental Status: alert / awake / arousable Patient Amnestic to Procedure: Yes Nausea / Vomiting: adequately controlled Pain: adequately controlled Airway Patency, RR, SpO2: stable & adequate BP & HR: stable & adequate Hydration State: stable & adequate Anesthetic Complications: no major complications apparent and Pt Satisfied with anesthetic care
--- NOTE | 2019-03-06 19:27 | Orthopedic Consultation ---
Date of Consultation March 06, 2019 Assessment & Plan (1) Osteoarthritis of right knee: Right knee severe end-stage osteoarthritis. Normally she would be a candidate for total knee replacement but due to her BMI of 60-69.9 level she is not a candidate for any surgery at all. We had a discussion about treatment options including steroid injection and rotation injection and bracing. She was agreeable to make appointment as an outpatient at [facility] after she heals up from this episode and does not want an injection at this time. (2) Impingement syndrome of right shoulder: Grade 4 DJD AC joint and impingement syndrome right shoulder. Typically this would be an indication for subacromial decompression distal clavicle excision type procedure however she is morbidly obese and not a candidate for surgical treatment. Could consider injections as an outpatient. She has been feeling better today so she will hold off any treatment at this time. History of Present Illness Attending Physician: DO Cher Bauman 73-year-old female with long history of osteoarthritis of her knees right greater than left recent onset of right shoulder pain. History of some lumbar spinal pain in the past which resolved with conservative management. Knee pain has been progressive over time she is to be able to walk up and down steps and hike some according to her but this is been progressively worsening over time and she is unable to perform those type of activities anymore. She is morbidly obese and is a stress type eater she says. Patient was taking a lot of ibuprofen for her orthopedic pain and ended up with a GI bleed. Allergies Allergy/AdvReac Type Severity Reaction Status Date / Time No Known Allergies Allergy Unverified 03/05/19 13:32 Home Medications Home Medications Medication Instructions Recorded Confirmed Type acetaminophen [Tylenol 8 Hour] 650 mg PO Q12H PRN 03/05/19 03/05/19 History ibuprofen 400 mg PO Q6H PRN 03/05/19 03/05/19 History magnesium salicylate-caffeine 2 tab PO Q6H PRN 03/05/19 03/05/19 History [Diurex] methyl salicylate-menthol [Bengay 1 applic TOPICAL BID PRN 03/05/19 03/05/19 History Greaseless] Patient History Medical History Morbid obesity with BMI of 60.0-69.9, adult (Chronic) Arthritis (Chronic) Degenerative disc disease (Chronic) Surgical History History of tubal ligation (Chronic) Family History Mother Lung disease Coronary heart disease Father Cancer throat cancer Lung disease Other Diabetes Family history non-contributory Social History Preferred Language: Albanian Communication Ability: Effective Beliefs That Will Affect Care: None marital status: Current Living Situation: Spouse Other Information That Helps Us Care for You: No Feels Safe at Home: Yes Safety Concerns: Feels Safe At This Time Smoking Status: Never smoker Hx Alcohol Use: No Hx Substance Use: No Review of Systems Review of Systems: View of systems positive for history of prior low back pain history of some pain rating down her right leg below the knee on the lateral side of the leg. Right shoulder pain was at the point where she can lift her arm overhead but that resolved and she is feeling better today. Physical Exam Physical Exam: Physical exam with regard to her knees demonstrate she has varus knees right greater than left with medial joint line tenderness right greater than left with 0 through 90 degrees range of motion. Patient is significantly morbidly obese mainly abdominal obesity with a very large pannus hanging over her thighs. No gross neurological deficits or circulation issues bilaterally. Right shoulder she is a course morbidly obese in the arm area she has some tenderness over AC joint she is a positive [place] impingement sign she has 170 degrees of active forward elevation and abduction and her rotator cuff strength was good. Results & Data Vital Signs (Past 12 Hours) Vital Signs Temp Pulse Pulse Resp BP Pulse Ox 03/06/19 15:41 86 03/06/19 15:40 36.6 C 88 20 149/76 H 95 03/06/19 12:24 91 H 18 143/84 H 96 03/06/19 11:53 87 20 153/84 H 96 03/06/19 11:37 93 H 20 150/69 H 97 03/06/19 11:21 85 20 147/82 H 97 03/06/19 10:32 36.7 C 99 H 20 136/104 H 96 03/06/19 08:00 91 H Radiographs of her shoulder demonstrates she has a subacromial spur that will cause impingement she has [id number] AC joint osteoarthritis she is normal amanda humeral joint. Hip x-rays are unremarkable for arthritis. Her knee x-ray demonstrates severe varus knee with [id number] medial compartment with some bone loss due to severe osteoarthritis.
[2019-03-07] MEDS: ACETAMINOPHEN 500 MG TAB PO SCH ×5 (00:04→20:25)
[2019-03-07] MEDS: TRAMADOL HCL 50 MG TABLET PO PRN ×3 (02:55→12:09)
[2019-03-07 06:17] LABS: Hematocrit (blood only) 25.4 % (37-47); Hemoglobin 8.2 g/dL (12.0-16.0); Mean Corpuscular Hgb Conc 32.3 g/dL (32-36); Mean Corpuscular Volume 96.6 fL (80-100); Mean Platelet Volume 9.2 fL (7.4-10.4); Nucleated RBC # (auto) 0.11 K/uL (0-0); Platelet Count 275 K/uL (130-400); RDW Standard Deviation 50.6 fL (36.4-46.3); Red Blood Count 2.63 M/uL (4.2-5.4); White Blood Count 11.04 K/uL (4.8-10.8)
[2019-03-07 06:54] LABS: BUN Creatinine Ratio 31.6 (10-20); Calcium 8.4 mg/dl (8.5-10.1); Creatinine Clr Calc Pharmacy 110.1 ml/min
[2019-03-07] MEDS: PANTOprazole 40 MG in SYRINGE 0 ML IV SCH ×3 (07:38→21:44)
--- NOTE | 2019-03-07 09:37 | Pain Management Consultation ---
Date of Consultation March 07, 2019 Assessment & Plan (1) Osteoarthritis: 1. Pain is located in the right shoulder and bilateral knees to which she will follow up with orthopedics on an outpatient basis. 2. Continue Tylenol and Tramadol for pain relief. 3. Once she is established with a PCP, I would recommend a trial of Cymbalta to help diminish pain burden as well as help mood. 4. No interventional procedures to offer the patient at this time. Thank you for the consultation. History of Present Illness Attending Physician: Thang Burgess DO History of Present Illness Mrs. Arango is a 73 year old white female that has been seen in consultation at the [facility] for multiple chronic pains. Patient has not seen a PCP in 5 years. She has several different pains including the bilateral knees and the right shoulder. She was taking Iburpofen, Aleve, Aspirin, and Tylenol for the pain and developed a gastric ulcer which was fixed yesterday during EGD. She did see orthopedics yesterday and did discuss a right AC joint decompression as well as the need for knee replacements. Due to her morbid obesity, surgery is not recommended at this time. She will need to lose weight prior to a knee replacement to be performed. They did discuss cortisone injections on an outpatient basis. Patient is currently taking Tylenol and Tra madol for pain relief which is moderately effective. Her pain has improved since hospitalization. Her predominant pain complaint is right shoulder pain as she felt like during the orthopedics exam, it was stretched too far. Patient is tolerating Tramadol and Tylenol without side effects. No constitutional complaints or neurological smyptoms. Case discussed with Dr. Wilkinson Allergies Allergy/AdvReac Type Severity Reaction Status Date / Time No Known Allergies Allergy Unverified 03/05/19 13:32 Home Medications Home Medications Medication Instructions Recorded Confirmed Type acetaminophen [Tylenol 8 Hour] 650 mg PO Q12H PRN 03/05/19 03/05/19 History ibuprofen 400 mg PO Q6H PRN 03/05/19 03/05/19 History magnesium salicylate-caffeine 2 tab PO Q6H PRN 03/05/19 03/05/19 History [Diurex] methyl salicylate-menthol [Bengay 1 applic TOPICAL BID PRN 03/05/19 03/05/19 History Greaseless] Patient History Medical History Morbid obesity with BMI of 60.0-69.9, adult (Chronic) Arthritis (Chronic) Degenerative disc disease (Chronic) Surgical History History of tubal ligation (Chronic) Family History Mother Lung disease Coronary heart disease Father Cancer throat cancer Lung disease Other Diabetes Family history non-contributory Social History Preferred Language: Hungarian Communication Ability: Effective Beliefs That Will Affect Care: None marital status: Current Living Situation: Spouse Other Information That Helps Us Care for You: No Feels Safe at Home: Yes Safety Concerns: Feels Safe At This Time Smoking Status: Never smoker Hx Alcohol Use: No Hx Substance Use: No Physical Exam Physical Exam: GENERAL: 73 year old white female is morbidly obese and physically deconditioned. Speech and cognition is intact. Mood and affect is appropriate. Sitting in the hospital bed, in no acute distress. HEAD: Normocephalic; atraumatic. EYES: Pupils are round, equal, and reactive to light; EOM intact. ENT: No external ear discharge or lesions. No rhinorrhea or epistaxis. No mucosal lesions. CHEST: Regular chest respiration and excursion. EXTREMITIES: Bilateral joint line tenderness of the knees. Knees are in a valgus formation. Right shoulder AC joint is tender. Patient will not perform ROM of the right shoulder due to worse pain in the shoulder today. NEURO: CN II-XII grossly intact with no focal deficits noted. Gait not witnessed. SKIN: No lesions, erythema, or rashes noted. Results Diagnostic Review Radiology Findings: XR knee RT 2V routine CLINICAL HISTORY: pain, h/o arthritis pain COMPARISON: None. DISCUSSION: Severe degenerative change medial joint compartment. Moderate degenerative changes lateral and patellofemoral joint compartment. No significant joint effusion. There is no evidence for soft tissue swelling. IMPRESSION: Considerable degenerative change. The above report was generated using voice recognition software. It may contain grammatical, syntax or spelling errors. XR shoulder RT min 2V routine CLINICAL HISTORY: pain, h/o arthritis pain COMPARISON: None. DISCUSSION: Moderate degenerative change right shoulder. No evidence for fracture or dislocation. Moderate acromioclavicular degenerative change with inferior osteophyte projection from the acromion There is no evidence for soft tissue swelling. IMPRESSION: Moderate generalized degenerative change. No acute process. The above report was generated using voice recognition software. It may contain grammatical, syntax or spelling errors. Electronically signed by: Gustavo Walker M.D. 03/05/2019 1:27 PM Electronically signed by: Gustavo Walker M.D. 03/05/2019 1:28 PM
--- NOTE | 2019-03-07 10:14 | Gastroenterology Progress Note ---
Date of Service March 07, 2019 Assessment & Plan (1) Anemia: (2) Fecal occult blood test positive: Pt is a 73 y/o w significant degenerative changes on her shoulders, knees w c/o pain unrelieved w NSAIDs (Aleve, Ibuprofen). GI consulted as pt had notice black stools 2 days ago, but had been on Peptobismol for GI upset. She was anemic on presentation and had FOBT positive stool studies EGD on 03/06 showed oozing gastric ulcer treated w bipolar cautery. H/H remained at 8 - Monitor H/H and transfuse prn - Protonix 40mg IV BID push , may convert to BID PO form on DC - Advance diet as tolerated - Repeat EGD in 4-6 week's time to be scheduled to eval ulcer healing - Avoid NSAIDs - Will watch peripherally, pls recall if any questions/concerns Supervising Physician Co-Signing Physician Notes I have performed a history and physical examination of this patient and reviewed the electronic medical record. Specifically, on history there is no abdominal pain or nausea, on physical examination there is no abdominal tenderness. I have discussed the case with KARY Rosales. The above note reflects my findings, conclusions, and recommendations. Ulysses Brito MD Subjective Pt had mild nausea this AM but improved once she ate. Requesting for solid meal. Denies any abd pain or any more BMs. C/O L shoulder pain after manipulation by Ortho during exam but better now. Review of Systems Review of Systems: All systems reviewed & are unremarkable except as noted in HPI & below Physical Exam Constitutional: + obese, well groomed, cooperative and comfortable Eyes: PERRL, conjunctivae normal, anicteric sclerae ENMT: external ear and nose normal, oropharynx normal Respiratory: normal respiratory effort, lungs clear to auscultation Cardiovascular: RRR, no murmur, no edema Gastrointestinal (Abdomen): normal bowel sounds, soft, nontender, no hepa tosplenomegaly Skin: no rashes, warm and dry no jaundice Neurologic: Motor/Sensory: no asterixis Psychiatric: A+Ox3, euthymic affect Lymphatic: no lymphedema Results & Data Vital Signs (Past 12 Hours) Vital Signs Temp Pulse Pulse Resp BP Pulse Ox 03/07/19 08:57 80 03/07/19 07:12 36.6 C 86 16 137/78 94 03/07/19 05:08 36.6 C 88 20 159/53 H 97 03/07/19 00:00 81 03/06/19 23:31 36.4 C L 80 18 155/67 H 97 (1) Anemia Anemia type: unspecified type Qualified Code(s): D64.9 - Anemia, unspecified
--- NOTE | 2019-03-07 10:20 | Hospitalist Progress Note ---
Date of Service March 07, 2019 Assessment & Plan (1) Upper GI bleed: This is a 73-year-old female who has a significant past medical history of morbid obesity and osteoarthritis who presents to [facility] secondary to generalized pain all over and dark stools x2 days. Likely secondary to significant NSAID use due to OADJD Pt has not been seen by PCP in 4-5 yrs Last hgb 2000 was 13.6 --> 10.1 yesterday, 8.2 today +FOBT EGD c Dr Brito revealed a bleeding gastric ulcer. Avoid NSAIDS PPI BID transfuse prn hgb < 7 or symptomatic DC tomorrow if Hb improved DC tele, ok for med/surg (2) Anemia: UGIB, Acute GI Blood Loss Anemia (3) THANH (acute kidney injury): Resolved (4) Arthritis: Pt with R tricompartmental arthritis, R shoulder arthritis, R Lateral "hip," pain ? trochanteric bursitis Was seen by orthopedics - significant pain and lack of mobility due to pain an issue unable to take NSAIDS given recent significant use and now concern for UGIB ICE TID PT/OT tramadol 50mg q4hr prn pain Scheduled Tylenol F/U c Ortho in office, Weight loss (5) Morbid obesity with BMI of 60.0-69.9, adult: encourage lifestyle modifications BMI 62 (6) DVT prophylaxis: SCDS/TEDS Disposition: discharge to home tomorrow, f/u c Ortho and GI outpatient Follow up: Pt has not seen outpt provider since 2013, recommend setting up hospital follow up with Penny Sin PA-C or Dr. Tom VICTORIA when Hb rising and edvin diet, monitor daily labs ROS-No Headache, No Visual Changes, No Nausea, No Vomiting, No Fever, No Chills, No Neck Pain or Stiffness, No Chest Pain, No Palpitations, No SOB, No BARRETT, No Cough, No Sputum, No Wheezing, No Abdominal Pain, No Diarrhea, No Hematemesis, No Hemoptysis, No Unexpected Weight Loss, No Flank pain, No Melena, No Hematochezia, No Frequency, No Urgency, No Burning, No Hematuria, No Rashes, No Diaphoresis. Appetite is Normal, Black stools Physical Exam Gen-AAO x 3, NAD, Afebrile, Obese Head-NCAT, EOMI, PERRLA, Anicteric Sclera, No Posterior Pharyngeal Erythema Neck-Supple, No JVD, No Thyromegaly, No Masses, No LAD, No Bruits Lungs-Clear to Auscultation Bilaterally, No Rales, No Rhonchi, No Wheezing, No Crepitus Chest-No S4, +S1, +S2, No S3, No Murmurs, No Rubs, No Gallops, No Ectopy Abdomen-Soft, Bowel Sounds Present, Non Tender, Non Distended, No Hepatomegaly, No Splenomegaly, No Palpable Masses, No Rebound, No Rigidity, No Guarding Musculoskeletal-Full Range of Motion Bilaterally, No CVAT Extremities-No Cyanosis, No Clubbing, No Edema Nuero-Cranial Nerves II-XII grossly intact, Motor WNL, DTRs WNL, Strength WNL, Non Focal Psych-Normal Mood Results & Data Vital Signs (Past 12 Hours) Vital Signs Temp Pulse Pulse Resp BP Pulse Ox 03/07/19 08:57 80 03/07/19 07:12 36.6 C 86 16 137/78 94 03/07/19 05:08 36.6 C 88 20 159/53 H 97 03/07/19 00:00 81 03/06/19 23:31 36.4 C L 80 18 155/67 H 97 (1) Anemia Anemia type: unspecified type Qualified Code(s): D64.9 - Anemia, unspecified
[2019-03-07] MEDS ORDERED: Nursing to Pharmacy Communication ONE (15:02)
[2019-03-08] MEDS: ACETAMINOPHEN 500 MG TAB PO SCH ×3 (00:21→08:41)
[2019-03-08] MEDS: TRAMADOL HCL 50 MG TABLET PO PRN (03:10)
[2019-03-08 06:03] LABS: Hemoglobin 8.1 g/dL (12.0-16.0); Mean Corpuscular Hgb Conc 32.4 g/dL (32-36); Mean Corpuscular Volume 96.2 fL (80-100); Mean Platelet Volume 8.7 fL (7.4-10.4); Nucleated RBC # (auto) 0.15 K/uL (0-0); Nucleated RBC % (auto) 1.8 %; Platelet Count 266 K/uL (130-400); RDW Coefficient of Variation 14.9 % (11.5-14.5); RDW Standard Deviation 50.3 fL (36.4-46.3); White Blood Count 8.44 K/uL (4.8-10.8)
[2019-03-08 06:45] LABS: BUN Creatinine Ratio 22.3 (10-20); Calcium 8.1 mg/dl (8.5-10.1); Est GFR (African American) 91.5; Est GFR (Non-African American) 78.9; Potassium 3.8 mmol/L (3.5-5.1)
--- NOTE | 2019-03-08 07:47 | Discharge Summary ---
Date of Service March 08, 2019 Admission HPI Per Admitting Provider This is a 73-year-old female who has a significant past medical history of morbid obesity and osteoarthritis who presents to [facility] secondary to generalized pain all over and dark stools x2 days. Family is at bedside. Patient elicits she has a known history of severe arthritis in the right knee which causes her difficulty for ambulation. As of recently she has also had difficulty with right shoulder pain. "I cannot even raise my right arm to brush my hair because it hurts." Because of her osteoarthritis and arthralgias she has been taking significant amount of ibuprofen and aspirin. She has been taking 4 - 200mg ibuprofen every 4 hours along with occasional 4- baby ASA. She alternates with APAP. Over the past 2 days she has had 2 large bowel movements that were dark, black. She also has had nausea. Because of the nausea she took Pepto-Bismol, which she took prior to noticing dark stools. She elicited to some lightheadedness and dizziness with change in position and movement but denies any ifeoma syncope. Denies any fever, chills, sweats, chest pain, shortness of breath, palpitations, nausea, hemoptysis, hematemesis, emesis, abdominal pain, diarrhea, dysuria, hematuria, increased urgency or frequency with urination. "I am beside myself with all of my pain." She denies seeing orthopedics in the past for her arthritis. She also has not seen a general practitioner in approximately 4 years. Appetite has been good. Denies any weight change. Denies PMH of HTN, HLD, T2DM, CVA, UT, PUD, Cancer Denies hx of colonoscopy or EGD Admission Exam Per Admitting Provider Physical Exam Gen-AAO x 3, NAD, Afebrile, Obese Head-NCAT, EOMI, PERRLA, Anicteric Sclera, No Posterior Pharyngeal Erythema Neck-Supple, No JVD, No Thyromegaly, No Masses, No LAD, No Bruits Lungs-Clear to Auscultation Bilaterally, No Rales, No Rhonchi, No Wheezing, No Crepitus Chest-No S4, +S1, +S2, No S3, No Murmurs, No Rubs, No Gallops, No Ectopy Abdomen-Soft, Bowel Sounds Present, Non Tender, Non Distended, No Hepatomegaly, No Splenomegaly, No Palpable Masses, No Rebound, No Rigidity, No Guarding Musculoskeletal-Full Range of Motion Bilaterally, No CVAT Extremities-No Cyanosis, No Clubbing, No Edema Nuero-Cranial Nerves II-XII grossly intact, Motor WNL, DTRs WNL, Strength WNL, Non Focal Psych-Normal Mood Principal Diagnosis Upper GI Bleed from Gastric Ulcer Gastric Ulcer Obesity BMI 62 DJD Acute GI Blood Loss Anemia Discharge Exam ROS-No Headache, No Visual Changes, No Nausea, No Vomiting, No Fever, No Chills, No Neck Pain or Stiffness, No Chest Pain, No Palpitations, No SOB, No BARRETT, No Cough, No Sputum, No Wheezing, No Abdominal Pain, No Diarrhea, No Hematemesis, No Hemoptysis, No Unexpected Weight Loss, No Flank pain, No Melena, No Hematochezia, No Frequency, No Urgency, No Burning, No Hematuria, No Rashes, No Diaphoresis. Appetite is Normal, Black stools Physical Exam Gen-AAO x 3, NAD, Afebrile, Obese Head-NCAT, EOMI, PERRLA, Anicteric Sclera, No Posterior Pharyngeal Erythema Neck-Supple, No JVD, No Thyromegaly, No Masses, No LAD, No Bruits Lungs-Clear to Auscultation Bilaterally, No Rales, No Rhonchi, No Wheezing, No Crepitus Chest-No S4, +S1, +S2, No S3, No Murmurs, No Rubs, No Gallops, No Ectopy Abdomen-Soft, Bowel Sounds Present, Non Tender, Non Distended, No Hepatomegaly, No Splenomegaly, No Palpable Masses, No Rebound, No Rigidity, No Guarding Musculoskeletal-Full Range of Motion Bilaterally, No CVAT Extremities-No Cyanosis, No Clubbing, No Edema Nuero-Cranial Nerves II-XII grossly intact, Motor WNL, DTRs WNL, Strength WNL, Non Focal Psych-Normal Mood Discharge Data Allergies Allergy/AdvReac Type Severity Reaction Status Date / Time No Known Allergies Allergy Unverified 03/05/19 13:32 Consultations 03/05/19 14:25 ED Decision to Admit Stat 03/05/19 14:48 Consult Gastroenterology Routine 03/05/19 17:37 Consult Orthopedic Surgery Routine 03/06/19 09:45 Consult Pain Management Routine Procedures Performed Operation Date: 03/06/19 08:45 Actual Procedures p EGD Biopsy Cytology - Ulysses Brito MD s EGD Hemostasis - Ulysses Brito MD Ordered Studies 03/05/19 14:03 CT abd pelvis IV con only Stat Current Diagnoses Anemia, unspecified (03/05/19) Morbid (severe) obesity due to excess calories (03/05/19) Gastrointestinal hemorrhage, unspecified (03/05/19) Unilateral primary osteoarthritis, right knee (03/05/19) Unspecified osteoarthritis, unspecified site (03/05/19) Impingement syndrome of right shoulder (03/05/19) Acute kidney failure, unspecified (03/05/19) Other fecal abnormalities (03/05/19) Encounter for other preprocedural examination (03/05/19) Encounter for prophylactic measures, unspecified (03/05/19) Body mass index (BMI) 60.0-69.9, adult (03/05/19) Allergies No Known Allergies Allergy (Unverified 03/05/19 13:32) Height/Weight/Isolation Height 5 ft 2 in Weight 154 kg Chemistry 03/07/19 03/08/19 05:49 05:53 Sodium 143 139 Potassium 4.0 3.8 Chloride 111 H 109 H Carbon Dioxide 27 26 Anion Gap 6.0 4.0 BUN 22 H 17 Creatinine 0.68 0.76 Glucose 80 92 Hospital Course (1) Upper GI bleed: This is a 73-year-old female who has a significant past medical history of morbid obesity and osteoarthritis who presents to [facility] secondary to generalized pain all over and dark stools x2 days. Likely secondary to significant NSAID use due to OA/DJD Pt has not been seen by PCP in 4-5 yrs Last hgb 2000 was 13.6 --> 10.1 yesterday, 8.1 today +FOBT EGD c Dr Brito revealed a bleeding gastric ulcer. Avoid NSAIDS PPI BID DC today (2) Anemia: UGIB, Acute GI Blood Loss Anemia, Hb Stable (3) THANH (acute kidney injury): Resolved (4) Arthritis: Pt with R tricompartmental arthritis, R shoulder arthritis, R Lateral "hip," pain ? trochanteric bursitis Was seen by orthopedics - significant pain and lack of mobility due to pain an issue unable to take NSAIDS given recent significant use and now concern for UGIB ICE TID PT/OT tramadol 50mg q4hr prn pain Scheduled Tylenol F/U c Ortho in office, Weight loss (5) Morbid obesity with BMI of 60.0-69.9, adult: encourage lifestyle modifications BMI 62 (6) DVT prophylaxis: SCDS/TEDS Disposition: discharge to home today, f/u c Ortho and GI outpatient Follow up: Pt has not seen outpt provider since 2013, recommend setting up hospital follow up with Penny Sin PA-C or Dr. Santos Total Time Total Time Spent Total Time Spent (In Minutes): 45 min Total Time Includes: Examination of the Patient, Discharge Planning, Medication Reconciliation and Communication With Other Providers Discharge Plan Discharge Items Patient Disposition: Home - Self-Care Reason For Visit: +FOBT Discharge Diagnosis: Upper GI Bleed from Gastric Ulcer Gastric Ulcer Obesity BMI 62 DJD Acute GI Blood Loss Anemia Condition: Good Discharge Goals: Improve nutritional status Specific Goals: Weight loss for future Ortho sugery Activity: Resume your previous activity Lifting: Gradually increase as tolerated Bathing: No limitations Sexual Activity: When tolerated Exercise/Sports: None Driving/Machine Use: No limitations Weightbearing: Left weightbearing and Right weightbearing Non-emergency contact: Primary Care Provider and Pastry Supervisor Call non-emergency contact if: you have any medication questions and your symptoms worsen Follow-up/Referrals: Ulysses Brito MD [Physician] - (2-3 weeks) Clarence Mejia MD [Primary Care Provider] - 03/12/19 10:45 am Diet: Regular and Heart Healthy Addtl Provider Instructions: Routine follow up Prescriptions: New tramadol 50 mg Tablet 50 mg PO Q4H PRN (Reason: pain) Qty: 30 RF: 0 acetaminophen [Tylenol Extra Strength] 500 mg Tablet 500 mg PO Q4 Qty: 100 RF: 0 Continued Bengay Greaseless 15-10 % Cream 1 applic TOPICAL BID PRN (Reason: Pain) RF: 0 Discontinued acetaminophen [Tylenol 8 Hour] 650 mg Tablet Extended Release 650 mg PO Q12H PRN (Reason: Pain) RF: 0 ibuprofen 200 mg Tablet 400 mg PO Q6H PRN (Reason: Pain) RF: 0 Diurex 162.5-50 mg Tablet 2 tab PO Q6H PRN (Reason: Fluid Retention) RF: 0 Stand-Alone Forms: [facility], [facility], [facility] Discharge Orders: Discharge Order (Routine); Ordered 03/08/19 Ordered By: Thang Burgess Admission Data Admit Date/Time: 03/05/19 15:28 Attending Provider: Thang Burgess Admit Provider: Markus Tsai Primary Care Provider: Clarence Mejia Other Providers: Markus Tsai ; Ulysses Brito ; Griffin Mcgowan ; Daniela Bradley Service: Telemetry Medical
[2019-03-08] MEDS: PANTOprazole 40 MG in SYRINGE 0 ML IV SCH (08:41)
== END 2019-03-08 10:10 | disposition home or self-care (01) | DRG 813 ==
LOC: ED 11:11 → SUATTDRO 15:28 → 2N 15:28